=== PATIENT | female | born 1935 | race Caucasian/White ===

== ENCOUNTER 2018-12-11 20:15 | Emergency (ER) | payer MEDICARE, BC ==
[2018-12-11 20:40] VITALS: BP 122/59
--- NOTE | 2018-12-11 20:57 | UC ---
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 noticed an irregular area on left forearm with possible fb. She states she has been working in her yard for the past 3 days. - History of Current Complaint Chief Complaint: UCSkin Time Seen by Provider: 12/11/18 20:53 Stated Complaint: SKIN COMPLAINT Hx Last Menstrual Period: n/a Pain Intensity: 0 - Allergy/Home Medications Allergies/Adverse Reactions: Allergies Allergy/AdvReac Type Severity Reaction Status Date / Time erythromycin base Allergy Leg pain Verified 12/11/18 20:29 Home Medications: Home Medications Metoprolol Tartrate TAB* [Lopressor TAB*] 25 mg PO DAILY 12/11/18 [History Confirmed 12/11/18] predniSONE TAB* [Deltasone 1 MG TAB*] 1.25 mg PO EVERY OTHER DAY 12/11/18 [ History Confirmed 12/11/18] predniSONE TAB* [Deltasone 1 MG TAB*] 2.5 mg PO EVERY OTHER DAY 12/11/18 [ History Confirmed 12/11/18] PMH/Surg Hx/FS Hx/Imm Hx Previously Healthy: Yes - Surgical History Surgical History: Yes Surgery Procedure, Year, and Place: R carpal tunnel, appy, c sections x2, R arm cyst, left foot bunion,breast bx, Left breast in situ CA-LUMPECTOMY. B/L carpal tunnel--2019 - Social History Alcohol Use: Daily Alcohol Amount: GLASS OF WINE WITH DINNER Substance Use Type: None Smoking Status (MU): Never Smoked Tobacco Review of Systems All Other Systems Reviewed And Are Negative: Yes Constitutional: Positive: Negative Skin: Positive: Other - FB. no fevbers/dc. no swelling. mild bruising Eyes: Positive: Negative ENT: Positive: Negative Respiratory: Positive: Negative Cardiovascular: Positive: Negative Gastrointestinal: Positive: Negative Genitourinary: Positive: Negative Motor: Positive: Negative Neurovascular: Positive: Negative Musculoskeletal: Positive: Negative Neurological: Positive: Negative Psychological: Positive: Negative Is Patient Immunocompromised?: No Physical Exam Triage Information Reviewed: Yes Appearance: Well-Appearing, No Pain Distress, Well-Nourished - very pleasant. sister in waiting room. Vital Signs: Initial Vital Signs Temp 98.6 F 12/11/18 20:35 Pulse 68 12/11/18 20:35 Resp 20 12/11/18 20:35 BP 122/59 12/11/18 20:35 Pulse Ox 94 12/11/18 20:35 Vital Signs Reviewed: Yes Respiratory Exam: Normal Respiratory: Positive: Lungs clear Cardiovascular Exam: Normal Cardiovascular: Positive: RRR Abdominal Exam: Normal Musculoskeletal Exam: Normal Neurological Exam: Normal Psychological Exam: Normal Skin: Positive: Other - left extensor forearm w/ 4-5 mm long superficial splinter removed easily w/ pickups. small nickel sized superficial pink bruise. cool. no dc or streaks Course/Dx - Differential Diagnoses - Skin Complaint Differential Diagnoses: Foreign Body - Diagnoses Provider Diagnosis: Foreign body (FB) in soft tissue Discharge ED - Sign-Out/Discharge Documenting (check all that apply): Patient Departure All imaging exams completed and their final reports reviewed: No Studies - Discharge Plan Condition: Stable Disposition: HOME Patient Education Materials: Soft Tissue Foreign Body (ED) Referrals: Blair Kaba MD [Primary Care Provider] - If Needed Additional Instructions: A very small splinter was removed without any difficulty. Look for any sign of infection - Billing Disposition and Condition Condition: STABLE Disposition: Home
== END 2018-12-11 21:28 | disposition home or self-care (01) ==
LOC: UCCORT 20:15
DX: S50.852A Superficial foreign body of left forearm, initial encounter (principal); W45.8XXA Other foreign body or object entering through skin, initial encounter; Y93.H9 Activity, other involving exterior property and land maintenance, building and construction; Y92.007 Garden or yard of unspecified non-institutional (private) residence as the place of occurrence of the external cause; Z88.1 Allergy status to other antibiotic agents
CPT/HCPCS: 10120; 99211; G0463